=== PATIENT | female | born 1970 | race Caucasian/White ===

== ENCOUNTER 2022-11-10 09:12 | Outpatient (CLI) | payer BC, SELFPAY ==
--- NOTE | 2022-11-10 09:15 | CRLHL7_ITS ---
For Patients: As a result of the Century Cures Act, medical imaging exams and procedure reports are released immediately into your electronic medical record. You may view this report before your referring provider. If you have questions, please contact your health care provider. INDICATION: Dysphagia. TECHNIQUE: Single and double contrast esophagram. FINDINGS: No esophageal stricture, mass, or obstruction. No evidence for esophageal diverticulum. No evidence for esophageal dysmotility. No hernia. Reflux could not be elicited in the upright or recumbent positions. Brief evaluation of the stomach and duodenum indicate that they are normal. 2 minutes 36 seconds fluoroscopic time utilized. These findings were discussed briefly with the patient. IMPRESSION: Normal single and double contrast esophagram. Dictated by Nikhil Kang MD @ 11/10/2022 10:10:03 AM (Electronically Signed)
== END 2022-11-10 09:13 | disposition home or self-care (01) ==
PROVIDERS: Visit Provider Otolaryngology
DX: R13.10 Dysphagia, unspecified (principal)
CPT/HCPCS: 74221